=== PATIENT | female | born 1990 | race Hispanic/Latino ===

== ENCOUNTER 2021-01-03 11:10 | Outpatient (CLI) | payer OTHER ==
[2021-01-03 20:25] LABS: SARS-CoV-2 PCR by NAA Not Detected (NotDetected)
== END 2021-01-03 11:11 | disposition home or self-care (01) ==
LOC: CSHLAB 11:10
PROVIDERS: ATTEND Family Medicine
DX: Z20.822 Contact with and (suspected) exposure to COVID-19 (principal)
CPT/HCPCS: 87635; U0003; U0005

== ENCOUNTER 2021-01-06 18:10 | Inpatient (IN) | payer OTHER ==
[2021-01-06 19:10] VITALS: BMI 47.8
[2021-01-06] MEDS ORDERED: Carboprost 250 MCG/ML AMP IM PRN (19:36)
[2021-01-06] MEDS ORDERED: Ondansetron PF 4 MG/2 ML Vial IVP PRN (19:36)
[2021-01-06] MEDS ORDERED: Butorphanol Tartrate 1 MG/ML VIAL SLOW IVP PRN (19:36)
[2021-01-06] MEDS ORDERED: Misoprostol 200 MCG TAB PR PRN (19:36)
[2021-01-06] MEDS ORDERED: Ibuprofen 800 MG TAB PO PRN (19:36)
[2021-01-06] MEDS ORDERED: Promethazine HCl 25 MG/ML VIAL IM PRN (19:36)
[2021-01-06] MEDS ORDERED: NS / Oxytocin 40 units/1000ml 1,000 ML IV PRN (19:36)
[2021-01-06] MEDS ORDERED: Methylergonovine 0.2 MG/ML VIAL IM PRN (19:36)
[2021-01-06] MEDS ORDERED: hydrALAZINE 20 MG/ML VIAL SLOW IVP PRN (19:36)
[2021-01-06] MEDS ORDERED: Lidocaine 1% (PF) 30 ML VIAL SC PRN (19:36)
[2021-01-06] MEDS ORDERED: Diphenoxylate HCl/Atropine Tablet PO PRN (19:36)
[2021-01-06] MEDS ORDERED: HYDROcodone/Acetaminophen 5/325 mg Tablet PO PRN (19:36)
[2021-01-06 19:58] LABS: Hemoglobin 11.5 g/dL (12.0-15.5); Mean Corpuscular HGB CONC 32.6 g/dL (32.0-36.0); Mean Corpuscular Hemoglobin 27.2 pg (27.0-33.0); Mean Corpuscular Volume 83.5 fl (81.6-98.3); Platelet Count 305 10x3/uL (150-450); RBC Distribution Width 14.9 % (11.5-14.5); Red Blood Cell (RBC) Count 4.23 10x6/uL (3.90-5.03); White Blood Cell (WBC) Count 14.9 10x3/uL (3.5-10.5)
[2021-01-06] MEDS ORDERED: Penicillin G Potassium 5 MILL.UNITS in Sodium Chloride 0.9% 100 ML IVPB SCH (20:00)
[2021-01-06 20:29] LABS: Hep B Surf Ag Non-Reactive S/CO (NonReactive); Syphilis Antibody Nonreactive (Nonreactive); Syphilis Antibody Index 0.06 S/CO (<1.00 Non-Reactive)
[2021-01-06] MEDS: Misoprostol 100 MCG TAB PO SCH (20:38)
[2021-01-06 20:40] LABS: HBSAg Index 0.15 S/CO (0-0.99)
[2021-01-07] MEDS: Penicillin G 2.5 MILL.units 2.5 MILL.UNITS in Premix Bag 1 BAG IVPB SCH ×7 (01:02→21:13)
[2021-01-07] MEDS: Misoprostol 100 MCG TAB PO SCH ×3 (01:02→19:44)
[2021-01-07] MEDS ORDERED: Bupivacaine 0.25% HCL 30 ML VIAL ONE (08:00)
[2021-01-07] MEDS ORDERED: Fentanyl 4 mcg/Bup 0.1% Cadd 100 ML ONE ×2 (09:05→17:52)
[2021-01-07] MEDS: Lactated Ringer's 1,000 ML IV SCH ×3 (09:30→19:44)
[2021-01-07] MEDS ORDERED: Acetaminophen 325 MG TAB PO PRN (09:46)
[2021-01-07] MEDS ORDERED: diphenhydrAMINE 50 MG/ML VIAL IVP PRN (09:46)
[2021-01-07] MEDS ORDERED: Lactated Ringer's 500 ML IV PRN (09:46)
[2021-01-07] MEDS ORDERED: Naloxone HCl 0.4 mg/ml Vial IVP PRN ×2 (09:46)
[2021-01-07] MEDS ORDERED: Ondansetron PF 4 MG/2 ML Vial IVP PRN (09:46)
[2021-01-07] MEDS ORDERED: Promethazine HCl 25 MG/ML VIAL IM PRN (09:46)
[2021-01-07] MEDS ORDERED: Communication Order-Pharmacy FS SCH (10:00)
[2021-01-07] MEDS ORDERED: Fentanyl 4 mcg/Bupivacaine 0.1% Cassette 100 ML EPIDURAL SCH (10:00)
[2021-01-07] MEDS ORDERED: ePHEDrine Sulfate 50 MG/10 ML VIAL SLOW IVP PRN (10:19)
[2021-01-07] MEDS ORDERED: NS w/ Oxytocin 30 units 500 ML ONE (11:14)
[2021-01-07] MEDS ORDERED: Lidocaine 1% (PF) 30 ML VIAL ONE (15:27)
[2021-01-07] MEDS ORDERED: Methylergonovine 0.2 MG/ML VIAL ONE (22:29)
[2021-01-07] MEDS ORDERED: CEFAZOLIN 1 GM VIAL ONE (22:29)
[2021-01-07] MEDS ORDERED: Misoprostol 200 MCG TAB ONE (22:29)
[2021-01-07] MEDS ORDERED: Famotidine/PF 20 mg/2ml Vial SLOW IVP PRN (22:30)
[2021-01-07] MEDS ORDERED: Carboprost 250 MCG/ML AMP ONE ×2 (22:30→22:45)
[2021-01-07] MEDS ORDERED: Bicitra 30 ML UDCUP PO PRN (22:30)
[2021-01-07] MEDS ORDERED: Azithromycin 500 MG in Sodium Chloride 0.9% 250 ML 250 ML IVPB SCH (22:45)
[2021-01-07] MEDS ORDERED: CEFAZOLIN 2 GM in Premix Bag 1 BAG IVPB SCH (22:45)
[2021-01-07] MEDS ORDERED: Oxytocin 10 UNITS/ML VIAL ONE (22:59)
[2021-01-07] MEDS ORDERED: CEFAZOLIN 1 GM in Sodium Chloride 0.9% 100 ML IVPB SCH (23:00)
[2021-01-07] MEDS ORDERED: Ketorolac Tromethamine 30 MG/ML VIAL ONE (23:00)
[2021-01-07] MEDS ORDERED: Dexamethasone 4 mg/ml Vial ONE (23:07)
[2021-01-07] MEDS ORDERED: ePHEDrine Sulfate 50 MG/10 ML VIAL ONE (23:08)
[2021-01-07] MEDS ORDERED: Morphine PF 10 MG/10 ML VIAL ONE (23:34)
[2021-01-07] MEDS ORDERED: Promethazine HCl 25 MG/ML VIAL ONE (23:35)
[2021-01-08] MEDS: Penicillin G 2.5 MILL.units 2.5 MILL.UNITS in Premix Bag 1 BAG IVPB SCH ×2 (01:54→03:24)
[2021-01-08] MEDS ORDERED: Bisacodyl 10 MG SUPP PR PRN (02:57)
[2021-01-08] MEDS ORDERED: hydrALAZINE 20 MG/ML VIAL SLOW IVP PRN (02:57)
[2021-01-08] MEDS ORDERED: NS / Oxytocin 40 units/1000ml 1,000 ML IV SCH (02:57)
[2021-01-08] MEDS ORDERED: Ondansetron PF 4 MG/2 ML Vial IVP PRN (02:57)
[2021-01-08] MEDS ORDERED: Simethicone Chewable 80 MG TAB PO PRN (02:57)
[2021-01-08] MEDS ORDERED: diphenhydrAMINE 25 MG CAP PO PRN (02:57)
[2021-01-08] MEDS ORDERED: Promethazine HCl 25 MG/ML VIAL IM PRN (02:57)
[2021-01-08] MEDS ORDERED: Meperidine HCl/PF 25 MG/ML VIAL IM PRN (02:57)
[2021-01-08] MEDS: Ketorolac Tromethamine 30 MG/ML VIAL IVP SCH ×3 (05:05→17:15)
[2021-01-08 06:18] LABS: Mean Corpuscular HGB CONC 32.2 g/dL (32.0-36.0); Mean Corpuscular Volume 84.1 fl (81.6-98.3); Mean Platelet Volume 10.9 fl (7.4-10.4); Platelet Count 258 10x3/uL (150-450); RBC Distribution Width 14.9 % (11.5-14.5); White Blood Cell (WBC) Count 21.2 10x3/uL (3.5-10.5)
[2021-01-08] MEDS: Ferrous Sulfate 325 MG TAB PO SCH ×2 (07:33→21:35)
[2021-01-08] MEDS: Docusate Calcium (SURFAK) 240 MG CAP PO SCH ×2 (07:33→21:30)
[2021-01-08] MEDS ORDERED: Adacel (T-DAP) 0.5 ML SYRINGE IM ONE (09:00)
[2021-01-08] MEDS: HYDROcodone/Acetaminophen 5/325 mg Tablet PO PRN (21:30)
[2021-01-09] MEDS: Ketorolac Tromethamine 30 MG/ML VIAL IVP SCH (00:55)
[2021-01-09] MEDS ORDERED: Ibuprofen 800 MG TAB PO SCH (06:00)
[2021-01-09] MEDS: Docusate Calcium (SURFAK) 240 MG CAP PO SCH ×2 (09:01→21:09)
[2021-01-09] MEDS: Ibuprofen 800 MG TAB PO SCH ×2 (09:01→16:58)
[2021-01-09] MEDS: Ferrous Sulfate 325 MG TAB PO SCH (12:52)
[2021-01-09] MEDS: HYDROcodone/Acetaminophen 5/325 mg Tablet PO PRN (16:59)
[2021-01-10] MEDS: Ibuprofen 800 MG TAB PO SCH ×2 (00:21→08:22)
[2021-01-10] MEDS: HYDROcodone/Acetaminophen 5/325 mg Tablet PO PRN ×2 (00:22→08:23)
[2021-01-10] MEDS: Ferrous Sulfate 325 MG TAB PO SCH ×2 (00:27→11:41)
[2021-01-10] MEDS: Docusate Calcium (SURFAK) 240 MG CAP PO SCH (08:22)
[2021-01-10 09:21] VITALS: BP 121/65; TEMP 98.2
[2021-01-10] MEDS ORDERED: Measles/Mumps/Rubella 10 MCG/0.5 ML VIAL SC ONE (11:00)
== END 2021-01-10 11:40 | disposition home or self-care (01) | DRG 787 ==
LOC: CSHLD 18:10 → CSHPP 01-08 02:55
PROVIDERS: ADMIT Family Medicine; ATTEND Family Medicine
PROC: 10D00Z1 Extraction of Products of Conception, Low, Open Approach (ICD-10-PCS; principal; 2021-01-07)
DX: O62.0 Primary inadequate contractions (principal); O10.92 Unspecified pre-existing hypertension complicating childbirth; O99.214 Obesity complicating childbirth; E66.01 Morbid (severe) obesity due to excess calories; Z3A.39 39 weeks gestation of pregnancy; Z37.0 Single live birth
CPT/HCPCS: 51702; 85027; 86780; 86850; 86900; 86901; 86922; 87340; 90707; J0456; J0690; J1100; J1885; J2270; J2540; J2550; J3490; J7050; S0020

== ENCOUNTER 2025-06-15 12:11 | Day surgery (SDC) | payer OTHER ==
[2025-06-15 12:36] VITALS: BMI 50.8
[2025-06-15] MEDS: Acetaminophen 500 MG TAB PO SCH (13:37)
== END 2025-06-15 14:08 | disposition home or self-care (01) ==
LOC: CSHLD/OP 12:11
PROVIDERS: ATTEND Family Medicine
DX: O98.512 Other viral diseases complicating pregnancy, second trimester (principal); U07.1 COVID-19; O13.2 Gestational [pregnancy-induced] hypertension without significant proteinuria, second trimester; O23.592 Infection of other part of genital tract in pregnancy, second trimester; B96.89 Other specified bacterial agents as the cause of diseases classified elsewhere; O98.812 Other maternal infectious and parasitic diseases complicating pregnancy, second trimester; B37.9 Candidiasis, unspecified; Z3A.23 23 weeks gestation of pregnancy; Z88.5 Allergy status to narcotic agent; Z79.899 Other long term (current) drug therapy; W01.0XXA Fall on same level from slipping, tripping and stumbling without subsequent striking against object, initial encounter
CPT/HCPCS: 87480; 87510; 87660